=== PATIENT | male | born 1990 | race Two or more races ===

== ENCOUNTER 2016-03-18 19:52 | Emergency (ER) | payer MEDICAID ==
--- NOTE | 2016-03-18 20:53 | EDPHY ---
H & P Time Seen by Provider: 03/18/16 20:26 HPI/ROS: CHIEF COMPLAINT: Right upper toothache HISTORY OF PRESENT ILLNESS: Patient is a 26-year-old male who presents emergency department with right upper molar pain. She patient does not recall an injury to that tooth. There is no recent fracture. Does have a tooth tenderness. Patient noticed mild facial swelling today. He took a friend's "ampicillina" tablet prior to arrival. Patient noticed he has had a mild fever. No nausea or vomiting. No trismus. No headache or neck pain. REVIEW OF SYSTEMS: My complete review of systems is negative except as mentioned in the HPI. Past Medical/Surgical History: Negative PSH: Knee surgery Smoking Status: Never smoked Physical Exam: Vitals noted General Appearance: Alert and no distress. Head: Pupils equal. Normal. HEENT: Patient has mild swelling to the right side of face. There is no fluctuance or palpable mass. There is no erythema or warmth. Patient has tenderness palpation in the right upper 1st molar. There is no dental injury. The surrounding tissue appears normal. He has no trismus. Neck: No lymphadenopathy. Supple Respiratory: No respiratory distress. Cardiac: regular rate and rhythm. Extremities: Full range of motion, normal appearing. Skin: No rashes or lesions. Neuro: Alert. Normal mood and affect. Constitutional: Initial Vital Signs Temperature (C) 38.3 C 03/18/16 20:05 Heart Rate 91 03/18/16 20:05 Respiratory Rate 16 03/18/16 20:05 Blood Pressure 147/85 H 03/18/16 20:05 O2 Sat (%) 96 03/18/16 20:05 O2 Delivery Mode Room Air Allergies/Adverse Reactions: No Known Allergies Allergy (Unverified 03/18/16 20:08) Home Medications: Medication Instructions Recorded Aleve 03/18/16 Ampicillin 03/18/16 Hydrocodone/APAP 5/325 [[place] 1 - 2 tab PO Q4 #13 tab 03/18/16 5/325 (RX)] Penicillin V Potassium 500 mg PO TID 10 Days 03/18/16 Medical Decision Making ED Course/Re-evaluation: In the emergency department I discussed possible etiologies with the patient. I discussed the importance of close follow-up with the dentist. He was given contact information for the dentist. He is given a dose of penicillin in the emergency department. He will continue to take penicillin until his course is completed. I gave him a prescription for Vicodin. He will return with worsening symptoms. Warnings were given. Differential Diagnosis: My differential includes but is not limited to dental infection, abscess, cellulitis, bacteremia, sepsis Departure - Departure Disposition: Home, Routine, Self-Care Clinical Impression: Dental infection Condition: Good Instructions: Toothache (ED), Dental Abscess (ED) Additional Instructions: Return with increasing fever, vomiting, jaw stiffness, neck stiffness, or any other concerns. Continue to take Aleve. Take heyour prescribed medication for pain. Take your entire course of antibiotics. You need close follow-up with a dentist. Referrals: [facility] [Outside] - As per Instructions [facility] [Outside] - As per Instructions Prescriptions: Hydrocodone/APAP 5/325 [[place] 5/325 (RX)] 1 - 2 tab PO Q4 #13 tab Penicillin V Potassium 500 mg PO TID 10 Days
[2016-03-18] MEDS ORDERED: PENICILLIN VK 500 MG TAB PO ONE (20:56)
[2016-03-18] MEDS ORDERED: HYDROCOD/APAP 5/325 PREPACK#6 BTL TAKEHOME ONE ×2 (21:20→21:27)
[2016-03-18 21:30] VITALS: BP 128/78; PULSE 70; RESP 14; TEMP 98.4; O2SAT 94
== END 2016-03-18 21:28 | disposition home or self-care (01) ==
DX: K04.7 Periapical abscess without sinus (principal)